=== PATIENT | female | born 1960 | race Caucasian/White ===

== ENCOUNTER 2017-03-26 18:31 | Emergency (ER) | payer OTHER ==
[~2017-03-26] VITALS: Ht 157.5 cm; Wt 106.6 kg
--- NOTE | ~2017-03-26 | EKG ---
[address] [place] [address] ELECTROCARDIOGRAM REPORT Name: SUSHMA GRAFF Javi Room #: DEP [facility]#: [id number] Admission: 03/26/17 Attend Phys: Discharge: 03/26/17 Date of : 64 Report #: [id number] THIS REPORT FOR: //name// 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
[~2017-03-26 18:31] MED LIST: ASPIRIN EC325 M1 PO; ASPIRIN81 M2 PO; BACLOFEN 10 MG10 MG PO; CARBAMAZEPINE200 M2 PO; CARBAMAZEPINE200 M5 PO; CYCLOBENZAPRINE10 MG PO; CYMBALTA60 MG PO; DILAUDID 4 MG TA4 M1 PO; FERRO-TIME325 MG PO; GLUCOPHAGE1000 MG PO; HYDROXYZINE HCL25 M1 PO; IBUPROFEN 400400 M1 PO; LANTUS SUBQ; LISINOPRIL10 MG PO; LORATIDINE 10 M10 M1 PO; MAXALT MLT ODT 55 M1 PO; MAXALT MLT5 MG PO; NEURONTIN 300300 M1 PO; NOVOLOG100 UNIT/1 SUBQ; PEPCID40 MG PO; RANITIDINE 150150 M1 PO; RESTORIL15 MG PO; RIZATRIPTAN5 MG PO; SAPHRIS5 MG SUBLING; TRAMADOL 50 MG50 MG PO; TRAZODONE 150150 M1 PO; TRAZODONE PO; VITAMIN D 5050000 I1; VITAMIN D350000 UNIT PO
[2017-03-26 19:08] LABS: ABSOLUTE NEUTROPHILS 6.9 thou/uL (1.4-8.2); BASOPHILS 0.2 % (0.0-2.0); EOSINOPHILS 2.1 % (0.0-3.0); HEMATOCRIT 36.3 % (37.0-47.0); HEMOGLOBIN 11.8 gm/dL (12.0-15.0); LYMPHOCYTES 28.4 % (24.0-44.0); MCHC 32.5 g/dL (28.0-37.0); MCV 73.9 fL (80.0-100.0); MONOCYTES 8.6 % (1.0-8.0); PLATELET COUNT 387 thou/uL (150-400); POLYS 60.7 % (36.0-66.0); RBC 4.91 mil/uL (4.20-5.00); WBC 11.3 thou/uL (4.0-11.0)
[2017-03-26 19:11] LABS: MANUAL DIFF NO
[2017-03-26] MEDS ORDERED: LIPITOR 20 MG T20 M1 PO (19:36)
[2017-03-26 19:38] LABS: APTT 26.3 Seconds (24.5-32.8); PROTIME 9.4 Seconds (9.3-11.4)
[2017-03-26 19:38] LABS: POC CA IONIZED 4.5 mg/dL (4.5-5.3); POC CREATININE 0.7 mg/dL (0.6-1.3); POC HEMOGLOBIN 12.6 g/dL (12.0-15.0); POC POTASSIUM 3.6 mmol/L (3.5-5.1)
[2017-03-26 19:38] LABS: URINE COLOR YELLOW
[2017-03-26 19:39] LABS: URINE BILIRUBIN NEGATIVE (Negative); URINE BLOOD NEGATIVE (Negative); URINE GLUCOSE-RANDOM* NEGATIVE (Negative); URINE KETONES NEGATIVE (Negative); URINE LEUKOCYTES-REFLEX NEGATIVE (Negative); URINE PROTEIN (DIPSTICK) NEGATIVE (Negative); URINE SPECIFIC GRAVITY <= 1.005 (1.003-1.035); URINE UROBILINOGEN 0.2 E.U./dl (0.2-1.0)
[2017-03-26 19:45] LABS: CALCIUM 9.3 mg/dL (8.5-10.1); CREATININE 0.8 mg/dL (0.6-1.0); POTASSIUM 3.9 mmol/L (3.5-5.1); SALICYLATE 5.2 mg/dL (2.8-20.0)
[2017-03-26] MEDS ORDERED: PROTONIX40 M1 PO (19:48)
[2017-03-26] MEDS ORDERED: CLARITIN10 MG PO (19:49)
[2017-03-26] MEDS ORDERED: VICTOZA SUBQ (19:50)
[2017-03-26] MEDS ORDERED: LASIX 20 MG TAB20 MG PO (19:51)
[2017-03-26] MEDS ORDERED: POTASSIUM20 PO (19:51)
[2017-03-26] MEDS ORDERED: METOCLOPRAMIDE 55 M1 (19:58)
[2017-03-26 20:11] LABS: AMP/METHAMP Negative (Negative); BARBITURATES Negative (Negative); BENZODIAZEPINES Negative (Negative); COCAINE Negative (Negative); METHADONE Negative (Negative); OPIATES Negative (Negative); PCP Negative (Negative); THC Negative (Negative)
[2017-03-26] MEDS ORDERED: GYNE-LOTRIMIN-745 GM TOP (20:19)
[2017-03-26] MEDS ORDERED: BENZTROPINE MESY2 MG (20:20)
[2017-03-26] MEDS ORDERED: LATUDA20 MG (20:21)
[2017-03-26] MEDS ORDERED: LANTUS SOL100 UNIT/1 SUBQ (20:21)
[2017-03-26] MEDS ORDERED: GLUCOTROL5 MG PO (20:22)
[2017-03-26] MEDS ORDERED: JANUVIA100 MG PO (20:22)
[2017-03-26] MEDS ORDERED: DIPHENHIST50 MG (20:23)
[2017-03-26] MEDS ORDERED: ROBAXIN 750 MG750 M1 (20:24)
[2017-03-26] MEDS ORDERED: PROAIR HFA8.5 GM INH (20:24)
== END 2017-03-26 21:22 | disposition home or self-care (01) ==
LOC: ER 18:31
PROVIDERS: Emergency Medicine
DX: R51 Headache (principal); R41.0 Disorientation, unspecified; E11.9 Type 2 diabetes mellitus without complications; F20.9 Schizophrenia, unspecified; F31.9 Bipolar disorder, unspecified; M19.90 Unspecified osteoarthritis, unspecified site; F17.210 Nicotine dependence, cigarettes, uncomplicated; Z90.49 Acquired absence of other specified parts of digestive tract; Z88.5 Allergy status to narcotic agent; Z88.8 Allergy status to other drugs, medicaments and biological substances

== ENCOUNTER → 2017-04-19 | Outpatient (CLI) | payer OTHER ==
[~2017-04-19] MED LIST changes: +BENZTROPINE MESY2 MG; +CLARITIN10 MG PO; +DIPHENHIST50 MG; +GLUCOTROL5 MG PO; +GYNE-LOTRIMIN-745 GM TOP; +JANUVIA100 MG PO; +LANTUS SOL100 UNIT/1 SUBQ; +LASIX 20 MG TAB20 MG PO; +LATUDA20 MG; +LIPITOR 20 MG T20 M1 PO; +METOCLOPRAMIDE 55 M1; +POTASSIUM20 PO; +PROAIR HFA8.5 GM INH; +PROTONIX40 M1 PO; +ROBAXIN 750 MG750 M1; +VICTOZA SUBQ
== END ==
LOC: MRI 07:43
DX: I63.9 Cerebral infarction, unspecified (principal)